=== PATIENT | female | born 1940 | race Caucasian/White ===

== ENCOUNTER → 2016-10-18 | Outpatient (CLI) | payer MEDICARE | END | disposition home or self-care (01) | LOC: GMAL 09:41 | PROVIDERS: ATTEND Family Medicine | DX: R30.0 Dysuria (principal) ==

== ENCOUNTER → 2016-11-01 | Outpatient (CLI) | payer MEDICARE ==
--- NOTE | 2016-11-01 09:41 | CT ---
EXAM DESCRIPTION: Abdoment/Pelvis w/o Contrast CLINICAL HISTORY: UNSPECIFIED ABD PAIN COMPARISON: February 10, 2015 TECHNIQUE: Noncontrast transaxial CT images of the abdomen and pelvis are obtained. Oral contrast is utilized. CT scan done according to ALARA (As Low As Reasonably Achievable). FINDINGS: The visualized lung bases show no acute findings. Small retrocardiac hiatal hernia is again seen slightly more prominent than previous. Given the limitations of a noncontrast exam the liver, spleen, pancreas, adrenal glands, and gallbladder are unremarkable. Calcifications of the spleen is seen suggesting old granulomatous disease. Kidneys show no abnormal calcifications. No ureteral obstruction. Urinary bladder is contracted and not well evaluated. The uterus is not well seen. No abnormal adnexal mass is appreciated. There is beam hardening artifact from a right hip arthroplasty securing visualization of the lower pelvis. The appendix is not definitely seen. No small bowel obstruction is seen. Stomach is relatively contracted. There are moderate scattered diverticuli throughout the entire colon without associated inflammatory changes or fluid collections. Small fat-containing umbilical and periumbilical hernias are seen. Osseous structures show no aggressive bony lesions. Degenerative changes of the spine are seen. No pathologically enlarged abdominal or retroperitoneal lymphadenopathy. Moderate atherosclerotic disease is seen. There is a small infrarenal abdominal aortic aneurysm measuring 2.6 cm greatest diameter ovary length of 3.1 cm. Is stable compared to previous. IMPRESSION: No acute findings on noncontrast CT of the abdomen and pelvis. Extensive colon diverticulosis without CT evidence of diverticulitis. Small retrocardiac hiatal hernia is stable. There is a 2.6 cm infrarenal abdominal aortic aneurysm stable from previous exam. Recommend follow-up imaging in 3 5 years. AAA Size: Follow-up Recommendation : 2.6-2.9 cm Every 5 years 3.0-3.4 cm Every 3 years 3.5-3.9 cm Every 1 year 4.0-4.4 cm Every 1 year, vascular consultation recommended 4.5-5.4 cm Every 6 months, vascular consultation recommended >5.5 cm Vascular surgery consultation recommended 1. J Vasc Surg. 2008;50(4 Suppl):S2-49 2. For aortas with maximum diameter of 2.6-2.9 cm meeting the criteria for AAA (>50% of proximal normal segment) Electronically signed by: Berny Roberts MD 11/01/2016 9:39 AM CDT
== END | disposition home or self-care (01) ==
LOC: CT 06:41
PROVIDERS: ATTEND Family Medicine
DX: R10.9 Unspecified abdominal pain (principal)

== ENCOUNTER → 2017-01-22 | Outpatient (CLI) | payer MEDICARE ==
--- NOTE | 2017-01-24 08:18 | RAD ---
EXAM DESCRIPTION: Wrist,Right 3 Views CLINICAL HISTORY: 76 years, Female, PAIN COMPARISON: None TECHNIQUE: AP/ lateral/ oblique views of the right wrist. FINDINGS: Right wrist is mildly demineralized with advanced degenerative changes particularly at the base of the thumb at the carpal metacarpal junction and at the articulation between the navicular and trapezium. No fracture or dislocation is seen in aggressive destructive changes of an inflammatory arthropathy are not apparent. Rather marked hypertrophic bone formation projects between the base of the thumb and the index finger at the proximal metacarpal level. A large bone spur osteophyte or joint mouse is suspected. Modest narrowing of the radiocarpal joint is evident. IMPRESSION: 1. Modest degenerative changes of the wrist with advanced degenerative disease at the base of the thumb and index finger with large accessory ossicle or spur projecting between the base of the first and second metacarpals Electronically signed by: Andrew Conti MD 01/24/2017 8:17 AM CDT
== END ==
LOC: RAD 11:30
PROVIDERS: ATTEND Orthopaedic Surgery
DX: M25.531 Pain in right wrist (principal); M12.831 Other specific arthropathies, not elsewhere classified, right wrist

== ENCOUNTER → 2017-02-19 | Outpatient (CLI) | payer MEDICARE | END | disposition home or self-care (01) | LOC: GMAL 11:34 | PROVIDERS: ATTEND Family Medicine | DX: D51.3 Other dietary vitamin B12 deficiency anemia (principal); E55.9 Vitamin D deficiency, unspecified ==

== ENCOUNTER 2017-06-04 05:47 | Day surgery (SDC) | payer MEDICARE ==
[2017-06-04] MEDS ORDERED: LACTATED RINGERS 1,000 ML ONE (06:04)
--- NOTE | 2017-06-04 09:56 | OP ---
DATE OF PROCEDURE: 06/04/17 PREOPERATIVE DIAGNOSIS: 1. Change in bowel habits. POSTOPERATIVE DIAGNOSIS: 1. Colonic polyp. 2. Diverticulosis. PROCEDURE: 1. Colonoscopy plus polypectomy. SURGEON: Leodan Witt MD. COMPLICATIONS: None apparent. BLOOD LOSS: None. MEDICATIONS: Monitored anesthesia care. DESCRIPTION OF PROCEDURE: Informed consent was obtained prior to sedation. The preprocedure cardiopulmonary assessment was satisfactory. The patient was placed in the left lateral decubitus position and was sedated. A digital rectal exam was unremarkable. The tip of the Olympus colonoscope was inserted in the rectum and guided over to the cecum. The colon was long and tortuous and there was loop formation. We had to apply abdominal pressure and also had to reduce loops in order to reach the cecum. The cecum was identified by locating the ileocecal valve and appendiceal orifice. Prep was good. The mucosa of the cecum, ascending colon, hepatic flexure, transverse colon, splenic flexure, descending colon and sigmoid colon was closely examined. Direct and retroflexed views of the rectum were obtained. In the distal ascending colon, there was a 1 cm sessile polyp that had the appearance of a serrated adenoma. This was removed with a hot snare in two pieces. There were no other polyps found. The patient has pretty much bonilla diverticulosis with some diverticula being seen in the ascending colon, transverse colon, descending colon, and certainly in the sigmoid colon. Otherwise, her scope was unremarkable without any stricturing or other significant pathology to account for her worsened constipation. RECOMMENDATIONS: 1. Followup polyp pathology. 2. Followup with me in [place] in one to two months and we will try to help with her altered bowel habits if she continues to have issues. #[id number] cc: Lucien Dougherty MD [facility]
[2017-06-04] MEDS ORDERED: PROPOFOL 200 MG/20 ML VIAL IV ONE (10:00)
[2017-06-04 14:21] VITALS: BP 120/74; TEMP 98.2; O2SAT 95
== END 2017-06-04 10:35 | disposition home or self-care (01) ==
LOC: AMB 05:47
PROVIDERS: ATTEND Internal Medicine Gastroenterology
DX: R19.4 Change in bowel habit (principal); D12.2 Benign neoplasm of ascending colon; K57.30 Diverticulosis of large intestine without perforation or abscess without bleeding; K59.09 Other constipation; Z87.891 Personal history of nicotine dependence; Z96.653 Presence of artificial knee joint, bilateral; Z96.641 Presence of right artificial hip joint; Z79.899 Other long term (current) drug therapy
CPT/HCPCS: 00810; 45385; 88305; J3490; J7120

== ENCOUNTER 2017-06-27 14:04 | Emergency (ER) | payer MEDICARE ==
[2017-06-27 14:28] VITALS: BP 128/91; TEMP 97.6; O2SAT 95
--- NOTE | 2017-06-27 14:40 | ED.PDOC ---
History of Present Illness - General Chief Complaint: Lower Extremity Injury Stated Complaint: Right knee discomfort Time Seen by Provider: 06/27/17 14:08 Source: patient, RN notes reviewed, Vital Signs reviewed Exam Limitations: no limitations - History of Present Illness Initial Comments: Patient comes in with c/o R knee pain after a fall. She had a mis-step on some wooden stairs landing on her R knee. She has hand a knee replacement in the past and wants to be sure nothing got damaged. Occurred: just prior to arrival Pain - Lower Extremity: moderate: Right Knee Method of Injury: fell Improving Factors: rest Worsening Factors: movement Allergies/Adverse Reactions: Allergies Codeine Allergy (Mild, Verified 06/27/17 14:28) Other itching Iodine Allergy (Mild, Verified 06/27/17 14:28) Rash Colesevelam [From Welchol] Adverse Reaction (Mild, Verified 06/27/17 14:28) Other cramping Ezetimibe [From Vytorin] Adverse Reaction (Mild, Verified 06/27/17 14:28) Other cramping Pravastatin Adverse Reaction (Mild, Verified 06/27/17 14:28) Other myalgia Rosuvastatin [From Crestor] Adverse Reaction (Mild, Verified 06/27/17 14:28) Other myalgia Sertraline [From Zoloft] Adverse Reaction (Mild, Verified 06/27/17 14:28) Other sweating Simvastatin [From Vytorin] Adverse Reaction (Mild, Verified 06/27/17 14:28) Other cramping Home Medications: Ambulatory Orders ALPRAZolam [Xanax] 0.5 mg PO BID PRN 02/07/14 Celecoxib [Celebrex] 200 mg PO DAILY 02/07/14 Donepezil Hydrochloride [Aricept] 10 mg PO DAILY 02/07/14 Gemfibrozil 600 mg PO DAILY 02/07/14 Losartan Potassium 50 mg PO DAILY 02/07/14 Omeprazole 20 mg PO BID 02/07/14 Furosemide [Lasix] 20 mg PO DAILY 07/14/14 Albuterol Sulfate [Proair Hfa] 2 puff IN BID PRN 09/13/14 Multiple Vitamin [Multivitamins] 1 cap PO DAILY 09/13/14 Potassium 99 mg PO BEDTIME 09/13/14 B-Complex Vitamins [B Complex] 1 cap PO PRN 06/04/17 Docusate Sodium [Stool Softener] 100 mg PO BID 06/04/17 Fluticasone Propionate Hfa [Flovent Hfa] 44 mcg IN DAILY 06/04/17 Lactulose (Encephalopathy) [Lactulose] 60 gm PO DAILY 06/04/17 Memantine [Namenda] 10 mg PO BID 06/04/17 Multiple Minerals W/ Vitamins [Citracal Plus] 1 tab PO BID 06/04/17 Omeprazole [PriLOSEC Cap] 20 mg PO BID 06/04/17 Polyethylene Glycol 3350 [Miralax] 17 gm PO PRN PRN 06/04/17 Saccharomyces Boulardii [Probiotic] 250 mg PO DAILY 06/04/17 Review of Systems - Review of Systems Constitutional: States: no symptoms reported Respiratory: States: no symptoms reported Cardiology: States: no symptoms reported Musculoskeletal: States: see HPI, joint pain - R knee, joint swelling - R knee Skin: States: no symptoms reported Neurological: States: no symptoms reported. Denies: numbness, paresthesia, tingling, weakness All other Systems: No Change from Baseline Past Medical History (General) - Patient Medical History Hx Seizures: No Hx Stroke: No Hx Dementia: No Hx Asthma: No Hx of COPD: Yes Hx Cardiac Disorders: Yes Hx Congestive Heart Failure: No Hx Pacemaker: No Hx Hypertension: Yes Hx Thyroid Disease: No Hx Diabetes: No Hx Gastroesophageal Reflux: Yes Hx Renal Disease: No Hx Cancer: No Hx of HIV: No Hx Hepatitis C: No Hx MRSA: No - Vaccination History Hx Influenza Vaccination: Yes - 2016 Hx Pneumococcal Vaccination: Yes - 2016 - Social History Hx Tobacco Use: No - Quit 2004 Hx Chewing Tobacco Use: No Hx Alcohol Use: No Hx Substance Use: Yes - former smoker Hx Substance Use Treatment: No Hx Depression: Yes Hx Physical Abuse: No Hx Emotional Abuse: No Hx Suspected Abuse: No - Female History Patient : No Family Medical History - Family History Father Living Status: Hx Family Cancer: Yes - bladder CA Mother Living Status: Hx Cardiac Disease: Yes - pacemaker, bradycardia Hx Family Cancer: Yes - "liver CA" Hx Family;Other: Mother had CAD Brother Living Status: Hx Family Diabetes: Yes Hx Family Cancer: Yes - bladder CA Hx Family;Other: 3 brothers total - one with COPD and DM; one with DM; and one with bladder CA and CAD. Sister Living Status: Hx Family Diabetes: Yes Hx Family Cancer: Yes - breast Hx Family;Other: 2 sisters - both with breast CA; both Physical Exam - Physical Exam General Appearance: Alert, Comfortable, No apparent distress, Well Developed, Well Groomed, Well Hydrated, Well Nourished Cardiovascular/Respiratory: normal peripheral pulses Thigh/Hip: normal inspection, non-tender, no evidence of injury, normal ROM Leg: normal inspection, non-tender, no evidence of injury, normal ROM Knee: normal ROM, bone tenderness - medial, proximal R tibia, ecchymosis, pain, soft tissue tenderness, swelling Ankle: normal inspection, non-tender, no evidence of injury, normal ROM Foot: normal inspection, non-tender, no evidence of injury, normal ROM Neuro/Tendon: normal sensation, normal motor functions, normal tendon functions , no evidence tendon injury Mental Status: alert, oriented x 3 Skin: normal color, warm/dry Comments: Vital Signs 06/27/17 14:20 Temperature 97.6 F Pulse Rate [ 79 Left Radial] Respiratory 18 Rate Blood Pressure 128/91 [Left Arm] O2 Sat by Pulse 95 Oximetry Progress - EKG/XRAY/CT XRAY: knee - prosthesis in place, no fracturing per Radiologist Departure - Departure Clinical Impression: Contusion of right knee, initial encounter Time of Disposition: 15:24 Disposition: Discharge to Home or Self Care Condition: Good Departure Forms: ED Discharge - Pt. Copy, Patient Portal Self Enrollment Instructions: DI for Knee Pain Diet: resume usual diet Activity: increase activity as tolerated Referrals: Lucien Dougherty III, MD [Primary Care Provider] - 1-2 Weeks Home Medications: Ambulatory Orders ALPRAZolam [Xanax] 0.5 mg PO BID PRN 02/07/14 Celecoxib [Celebrex] 200 mg PO DAILY 02/07/14 Donepezil Hydrochloride [Aricept] 10 mg PO DAILY 02/07/14 Gemfibrozil 600 mg PO DAILY 02/07/14 Losartan Potassium 50 mg PO DAILY 02/07/14 Omeprazole 20 mg PO BID 02/07/14 Furosemide [Lasix] 20 mg PO DAILY 07/14/14 Albuterol Sulfate [Proair Hfa] 2 puff IN BID PRN 09/13/14 Multiple Vitamin [Multivitamins] 1 cap PO DAILY 09/13/14 Potassium 99 mg PO BEDTIME 09/13/14 B-Complex Vitamins [B Complex] 1 cap PO PRN 06/04/17 Docusate Sodium [Stool Softener] 100 mg PO BID 06/04/17 Fluticasone Propionate Hfa [Flovent Hfa] 44 mcg IN DAILY 06/04/17 Lactulose (Encephalopathy) [Lactulose] 60 gm PO DAILY 06/04/17 Memantine [Namenda] 10 mg PO BID 06/04/17 Multiple Minerals W/ Vitamins [Citracal Plus] 1 tab PO BID 06/04/17 Omeprazole [PriLOSEC Cap] 20 mg PO BID 06/04/17 Polyethylene Glycol 3350 [Miralax] 17 gm PO PRN PRN 06/04/17 Saccharomyces Boulardii [Probiotic] 250 mg PO DAILY 06/04/17 Additional Instructions: Tylenol &/or Ibuprofen for pain. Ice knee for 15 minutes 3-5X/day
--- NOTE | 2017-06-27 15:13 | RAD ---
EXAM DESCRIPTION: Knee,Right Complete CLINICAL HISTORY: pain s/p fall COMPARISON: None. TECHNIQUE: 3 views right FINDINGS: A right total knee arthroplasty is observed in place. Positioning is near-anatomic. No evidence of loosening or infection is detected. Mild diffuse osteopenia is observed. No fracturing is detected. IMPRESSION: A total knee arthroplasty is observed. No fracturing is detected. Electronically signed by: Lucien Squires MD 06/27/2017 3:11 PM [facility]
== END 2017-06-27 15:29 | disposition home or self-care (01) ==
LOC: ER 14:04
DX: S80.01XA Contusion of right knee, initial encounter (principal); J44.9 Chronic obstructive pulmonary disease, unspecified; I10 Essential (primary) hypertension; K21.9 Gastro-esophageal reflux disease without esophagitis; Z96.651 Presence of right artificial knee joint; Z88.6 Allergy status to analgesic agent; Z88.8 Allergy status to other drugs, medicaments and biological substances; Z79.899 Other long term (current) drug therapy; Z87.891 Personal history of nicotine dependence; W10.9XXA Fall (on) (from) unspecified stairs and steps, initial encounter; Y92.9 Unspecified place or not applicable

== ENCOUNTER → 2017-08-12 | Outpatient (CLI) | payer MEDICARE ==
--- NOTE | 2017-08-13 09:45 | RAD ---
EXAM DESCRIPTION: Femur,Right CLINICAL HISTORY: 77 years Female, RIGHT HIP PAIN COMPARISON: None. FINDINGS: Four views of the femur demonstrate a total right hip prosthesis and a total right knee prosthesis in place with the femoral trochanteric and femoral shaft intact on these four images. A large separate greater trochanteric fragment that is migrated proximally is evident and likely related to previous injury and hip replacement. No acute abnormality or evidence of loosening seen at the knee replacement level. At the tip of the femoral prosthesis a tiny amount of lucency is present as well as a very slight lucency at the proximal extent of the stem on the frog-leg view. Mild loosening of the femoral component of the prosthesis would be a consideration. No dislocation is seen. IMPRESSION: Prior right hip and right knee total joint replacement evident with fragmented large separate greater trochanteric fragment at the lateral aspect of the right hip. No acute injury or dislocation seen. Subtle mottled lucency at both the distal tip and proximal portion of the femoral neck stem suggesting the possibility of early changes of loosening of the prosthesis. Electronically signed by: Andrew Conti MD 08/13/2017 9:44 AM [facility]
--- NOTE | 2017-08-13 09:51 | RAD ---
EXAM DESCRIPTION: Hip,Right 2 Views CLINICAL HISTORY: HIP PAIN COMPARISON: August 10, 2015 TECHNIQUE: AP/frog leg lateral FINDINGS: Two views of the right hip show very subtle lucency around the tip of the femoral stem and very slight change in alignment at the proximal portion of the femoral stem suggesting an element of loosening. Separate greater trochanteric fragment is unchanged from prior study. No fracture or dislocation is noted. Subtle changes of loosening of the femoral component of the prosthesis are suspected. IMPRESSION: Abnormal examination with subtle changes suggesting loosening of the femoral stem. Electronically signed by: Andrew Conti MD 08/13/2017 9:50 AM [facility]
== END ==
LOC: RAD 12:06
PROVIDERS: ATTEND Orthopaedic Surgery
DX: M25.551 Pain in right hip (principal); Z96.641 Presence of right artificial hip joint; Z96.651 Presence of right artificial knee joint; Z98.890 Other specified postprocedural states

== ENCOUNTER 2017-09-25 17:07 | Emergency (ER) | payer MEDICARE ==
[2017-09-25] MEDS ORDERED: ALUM & MAG HYDROX-SIMETHICONE 30 ML, LIDOCAINE VISCOUS 2% 15 ML PO ONE ×2 (17:36)
[2017-09-25] MEDS ORDERED: LIDOCAINE HCL 2% (MOUTH-THROAT) 15 ML UD ONE (18:02)
[2017-09-25] MEDS ORDERED: ALUM & MAG HYDROX-SIMETHICONE 30 ML UD ONE (18:02)
--- NOTE | 2017-09-25 18:31 | RAD ---
PROCEDURE: Abdomen Series Clinical History: left upper quad pain and dizziness for 2 hours Indication: Same as above Comparison: None Technique: 2.0 views of the abdomen and pelvis and 1.0 view of the chest were done. Findings: There is no gross evidence of free air in the abdomen or the pelvis . The small and large bowel gas pattern does not show any evidence of obstruction, ileus or bowel wall thickening. There is no visualization of radiopaque calculi in the outline of the urinary tract. There is no significant constipation. There is a right hip arthroplasty and multilevel degenerative change in the lumbar spine There are no discrete airspace infiltrates and pneumothoraces or pleural effusions. The cardiac mediastinal silhouette is unremarkable. Impression: There are no acute or significant findings in the chest, abdomen and pelvis Electronically signed by: Denis Martinez MD 09/25/2017 6:30 PM [facility] Workstation: [id number]
[2017-09-25] MEDS ORDERED: SUCRALFATE 1 GM/10 ML 1 GM UD PO ONE (19:27)
[2017-09-25] MEDS ORDERED: PANTOPRAZOLE SODIUM TAB 40 MG PO ONE (19:27)
--- NOTE | 2017-09-25 20:00 | CT ---
PROCEDURE: Abdoment/Pelvis w/o Contrast HISTORY: luq pain, dizziness Indication: Same as above Comparison: None Technique: CT of the abdomen and pelvis was done without intravenous contrast. Images were obtained from the lung base to the level of the pubic symphysis in axial plane, followed by orthogonal sagittal and coronal reconstruction. Oral contrast was not given for the study. This exam was performed according to our departmental dose-optimization program, which includes automated exposure control, adjustment of the mA and/or KV according to the patient's size and/or use of iterative reconstruction technique. FINDINGS: Images through the lung bases do not show any focal infiltrates or pleural effusions. There is presence of tiny intraluminal gallstones The liver, pancreas, spleen and the bilateral adrenal glands appear unremarkable, given the limitation of lack of intravenous contrast. The bilateral kidneys do not show any evidence of hydronephrosis or nephrolithiasis. Mild parenchymal scarring is seen in the lower pole of the left kidney The bilateral ureters and the bilateral periureteral soft tissues and fat planes are unremarkable. The urinary bladder is unremarkable, without any evidence of wall thickening, calculi or filling defects. The small bowel appears unremarkable, without any evidence of small bowel obstruction or bowel wall thickening. There is no CT evidence of acute appendicitis, pericecal inflammatory change or ileocecal mesenteric adenitis. The ileocecal junction appears unremarkable. There is no CT evidence of acute colonic diverticulitis or colitis or large bowel obstruction. There is extensive large bowel diverticulosis There is no pathological lymphadenopathy in the retroperitoneum or in the pelvic region. There is no evidence of free fluid or free air in the abdomen or the pelvic region. There is no clinically significant abdominal aortic aneurysm. There is a 2.5 cm ectasia of the infrarenal abdominal aorta not requiring any imaging follow-up There is no clinically significant inguinal or ventral hernia. The visualized lumbar spine shows multilevel degenerative change. There is right hip arthroplasty The paravertebral soft tissues are unremarkable. The remainder of the pelvic structures are unremarkable. IMPRESSION: Probable cholelithiasis. Ultrasound confirmation suggested for this finding. There is large bowel diverticulosis without acute diverticulitis Electronically signed by: Denis Martinez MD 09/25/2017 7:59 PM [facility] Workstation: [id number]
[2017-09-25 20:03] VITALS: TEMP 97.4
--- NOTE | 2017-09-25 20:34 | ED.PDOC ---
History of Present Illness - General Chief Complaint: Cardiovascular Problem Stated Complaint: L chest wall/back discomfort, dizziness, sweating Time Seen by Provider: 09/25/17 17:29 Source: patient - History of Present Illness Initial Comments: The patient is a 77-year-old female presenting to the emergency room after approximately 1 hour symptoms of epigastric and left upper quadrant discomfort along with an episode of dizziness. Vital signs within normal. She was feeling fine before that. She had just eaten some double legs and ham. She did not throw up but did feel little bit nauseated. She has not had any diarrhea or significant constipation. No vision changes. No focal neurological changes. She does not have central abdominal pain. No bruising. No fall. No evidence of any trauma. No history of diverticulitis.symptoms have almost resolved by the time the patient arrived here. the patient did have a history of a GI bleed apparently a couple of years ago but they were unable to find the source. No significant bleeding since that time. No recent medication changes.no chest pain and no shortness of breath. No pain in her back. Timing/Duration: 1 hour Severity: moderate Improving Factors: nothing Worsening Factors: nothing Associated Symptoms: denies symptoms Allergies/Adverse Reactions: Allergies Codeine Allergy (Mild, Verified 09/25/17 17:24) Other itching Iodine Allergy (Mild, Verified 09/25/17 17:24) Rash Colesevelam [From Welchol] Adverse Reaction (Mild, Verified 09/25/17 17:24) Other cramping Ezetimibe [From Vytorin] Adverse Reaction (Mild, Verified 09/25/17 17:24) Other cramping Pravastatin Adverse Reaction (Mild, Verified 09/25/17 17:24) Other myalgia Rosuvastatin [From Crestor] Adverse Reaction (Mild, Verified 09/25/17 17:24) Other myalgia Sertraline [From Zoloft] Adverse Reaction (Mild, Verified 09/25/17 17:24) Other sweating Simvastatin [From Vytorin] Adverse Reaction (Mild, Verified 09/25/17 17:24) Other cramping Home Medications: Ambulatory Orders ALPRAZolam [Xanax] 0.5 mg PO BID PRN 02/07/14 Celecoxib [Celebrex] 200 mg PO DAILY 02/07/14 Donepezil Hydrochloride [Aricept] 10 mg PO DAILY 02/07/14 Gemfibrozil 600 mg PO BID 02/07/14 Losartan Potassium 50 mg PO DAILY 02/07/14 Omeprazole 20 mg PO BID 02/07/14 Furosemide [Lasix] 20 mg PO DAILY 07/14/14 Albuterol Sulfate [Proair Hfa] 2 puff IN BID PRN 09/13/14 Multiple Vitamin [Multivitamins] 1 cap PO DAILY 09/13/14 Potassium 99 mg PO BEDTIME 09/13/14 B-Complex Vitamins [B Complex] 1 cap PO BEDTIME 06/04/17 Docusate Sodium [Stool Softener] 100 mg PO BID 06/04/17 Fluticasone Propionate Hfa [Flovent Hfa] 44 mcg IN DAILY 06/04/17 Lactulose (Encephalopathy) [Lactulose] 60 gm PO BEDTIME 06/04/17 Memantine [Namenda] 10 mg PO BID 06/04/17 Multiple Minerals W/ Vitamins [Citracal Plus] 1 tab PO BID 06/04/17 Polyethylene Glycol 3350 [Miralax] 17 gm PO BEDTIME 06/04/17 Saccharomyces Boulardii [Probiotic] 250 mg PO BEDTIME 06/04/17 Famotidine 20 mg PO BID #30 tab 09/25/17 Sucralfate Tab [Carafate Tab] 1 gm PO QID #120 tab 09/25/17 Review of Systems - Review of Systems Constitutional: States: no symptoms reported EENTM: States: no symptoms reported Respiratory: States: no symptoms reported Cardiology: States: no symptoms reported Gastrointestinal/Abdominal: States: see HPI Genitourinary: States: no symptoms reported Musculoskeletal: States: no symptoms reported Skin: States: no symptoms reported Neurological: States: other - dizziness Endocrine: States: no symptoms reported Hematologic/Lymphatic: States: no symptoms reported All other Systems: No Change from Baseline Past Medical History (General) - Patient Medical History Hx Seizures: No Hx Stroke: No Hx Dementia: No Hx Asthma: No Hx of COPD: Yes Hx Cardiac Disorders: Yes Hx Congestive Heart Failure: No Hx Pacemaker: No Hx Hypertension: Yes Hx Thyroid Disease: No Hx Diabetes: No Hx Gastroesophageal Reflux: Yes Hx Renal Disease: No Hx Cancer: No Hx of HIV: No Hx Hepatitis C: No Hx MRSA: No Surgical History: other - Vaccination History Hx Influenza Vaccination: Yes - 2017 Hx Pneumococcal Vaccination: Yes - 2017 - Social History Hx Tobacco Use: No - Quit 2004 Hx Chewing Tobacco Use: No Hx Alcohol Use: No Hx Substance Use: Yes - former smoker Hx Substance Use Treatment: No Hx Depression: Yes Hx Physical Abuse: No Hx Emotional Abuse: No Hx Suspected Abuse: No - Female History Patient : No Family Medical History - Family History Father Living Status: Hx Family Cancer: Yes - bladder CA Mother Living Status: Hx Cardiac Disease: Yes - pacemaker, bradycardia Hx Family Cancer: Yes - "liver CA" Hx Family;Other: Mother had CAD Brother Living Status: Hx Family Diabetes: Yes Hx Family Cancer: Yes - bladder CA Hx Family;Other: 3 brothers total - one with COPD and DM; one with DM; and one with bladder CA and CAD. Sister Living Status: Hx Family Diabetes: Yes Hx Family Cancer: Yes - breast Hx Family;Other: 2 sisters - both with breast CA; both Physical Exam - Physical Exam General Appearance: Alert, Anxious, No apparent distress Eye Exam: bilateral normal Ears, Nose, Throat: hearing grossly normal, normal ENT inspection, normal pharynx Neck: non-tender, full range of motion, supple, normal inspection Respiratory: chest non-tender, lungs clear, normal breath sounds, no respiratory distress Cardiovascular/Chest: normal peripheral pulses, regular rate, rhythm, no edema Peripheral Pulses: radial,right: 2+, radial,left: 2+, dorsalis pedis,right: 2+, dorsalis pedis,left: 2+ Gastrointestinal/Abdominal: soft, other - the patient has mild epigastric to left upper quadrant discomfort palpation. No true rebound or peritoneal signs. Rectal Exam: deferred Back Exam: normal inspection, no CVA tenderness, no vertebral tenderness Extremity: normal range of motion, non-tender, normal inspection, no pedal edema , normal capillary refill Neurologic: rn provider relations II-XII nml as tested, alert, normal mood/affect, oriented x 3 Skin Exam: normal color Comments: Vital Signs - 24 hr 09/25/17 09/25/17 09/25/17 17:17 17:40 17:42 Temperature 98.7 F Pulse Rate Pulse Rate [ 71 74 85 Left Radial] Respiratory 18 Rate Blood Pressure 134/59 114/58 138/61 [Right Arm] O2 Sat by Pulse 96 Oximetry 09/25/17 09/25/17 19:42 20:00 Temperature 97.4 F L Pulse Rate 75 Pulse Rate [ 71 75 Left Radial] Respiratory 18 20 Rate Blood Pressure 130/74 148/68 [Right Arm] O2 Sat by Pulse 98 97 Oximetry Progress - Progress Progress: 09/25/17 20:36 the patient is a 77-year-old female presenting to the emergency room secondary to left upper quadrant discomfort and mild dizziness associated with it. Workup has failed to yield any definitive pathology however the patient will be treated presumptively for significant gastritis given the clinical history. Hemoglobin and hematocrit have remained stable. Lab work is reassuring. CT scan is reassuring. The patient is going to be placed on Carafate and Pepcid for the next few weeks. ER warnings were given for any significant worsening. I want her to follow-up with her primary care doctor early next week. - Results/Orders Results/Orders: 09/25/17 17:35 Telemetry .CONTINUOUS Vital Signs-Tilt PRN 09/25/17 17:45 EKG STAT Laboratory Results - last 24 hr 09/25/17 09/25/17 09/25/17 17:45 17:45 17:45 WBC 6.5 RBC 3.97 L Hgb 12.5 Hct 36.2 MCV 91.2 MCH 31.4 H MCHC 34.6 RDW 12.5 Plt Count 293 MPV 7.5 Absolute Neuts (auto) 4.30 Absolute Lymphs (auto) 1.50 Absolute Monos (auto) 0.50 Absolute Eos (auto) 0.20 Absolute Basos (auto) 0.00 Neutrophils % 66.1 Lymphocytes % 23.1 Monocytes % 7.4 Eosinophils % 2.7 Basophils % 0.7 PT 11.9 INR 1.050 PTT (SP) 30.9 D-Dimer, Quantitative < 200 Sodium 135 Potassium 3.7 Chloride 102 Carbon Dioxide 22 Anion Gap 14.7 BUN 24 H Creatinine 0.98 BUN/Creatinine Ratio 24.5 H Random Glucose 115 H Serum Osmolality 275.1 Calcium 9.0 Magnesium 2.1 Total Bilirubin 0.3 AST 16 ALT 11 Alkaline Phosphatase 44 Creatine Kinase 43 CK-MB (CK-2) 1.4 CK-MB (CK-2) % Not Reportable Troponin I < 0.02 B-Natriuretic Peptide 12.8 Serum Total Protein 6.8 Albumin 4.0 Globulin 2.8 Albumin/Globulin Ratio 1.4 Amylase 45 Lipase 25 Urine Color Urine Appearance Urine pH Ur Specific [place] Urine Protein Urine Glucose (UA) Urine Ketones Urine Blood Urine Nitrite Urine Bilirubin Urine Urobilinogen Ur Leukocyte Esterase Urine RBC Urine WBC Ur Epithelial Cells Urine Bacteria 09/25/17 09/25/17 19:11 20:15 WBC 6.5 RBC 4.19 L Hgb 13.0 Hct 38.1 MCV 91.1 MCH 31.0 MCHC 34.2 RDW 12.6 Plt Count 303 MPV 7.6 Absolute Neuts (auto) 3.80 Absolute Lymphs (auto) 1.90 Absolute Monos (auto) 0.50 Absolute Eos (auto) 0.20 Absolute Basos (auto) 0.00 Neutrophils % 58.6 Lymphocytes % 29.5 Monocytes % 8.4 Eosinophils % 2.9 Basophils % 0.6 PT INR PTT (SP) D-Dimer, Quantitative Sodium Potassium Chloride Carbon Dioxide Anion Gap BUN Creatinine BUN/Creatinine Ratio Random Glucose Serum Osmolality Calcium Magnesium Total Bilirubin AST ALT Alkaline Phosphatase Creatine Kinase CK-MB (CK-2) CK-MB (CK-2) % Troponin I B-Natriuretic Peptide Serum Total Protein Albumin Globulin Albumin/Globulin Ratio Amylase Lipase Urine Color Yellow Urine Appearance Clear Urine pH 5.5 Ur Specific [place] 1.010 Urine Protein Negative Urine Glucose (UA) Negative Urine Ketones Negative Urine Blood Small H Urine Nitrite Negative Urine Bilirubin Negative Urine Urobilinogen 0.2 Ur Leukocyte Esterase Trace H Urine RBC 1-3 Urine WBC 3-5 H Ur Epithelial Cells 1-3 Urine Bacteria 0 acute abdominal series shows no acute pathology. EKG shows normal sinus rhythm at a rate of 76 bpm. Normal voltage. Borderline slow R-wave progression. No acute ST segment changes concerning for ischemia. Normal axis. CT scan of abdomen and pelvis shows no evidence of any hemorrhage. No aortic dissection or aneurysm. No acute pathology. She does have a few gallstones. Departure - Departure Clinical Impression: Dizziness Gastritis Qualifiers: Gastritis type: unspecified gastritis Chronicity: acute Gastritis bleeding: without bleeding Qualified Code(s): K29.00 - Acute gastritis without bleeding Disposition: Discharge to Home or Self Care Condition: Fair Departure Forms: ED Discharge - Pt. Copy, Patient Portal Self Enrollment Diet: bland diet Activity: increase activity as tolerated Referrals: Lucien Dougherty III, MD [Primary Care Provider] - 1-5 Days Prescriptions: Famotidine 20 mg PO BID #30 tab Sucralfate Tab [Carafate Tab] 1 gm PO QID #120 tab Home Medications: Ambulatory Orders ALPRAZolam [Xanax] 0.5 mg PO BID PRN 02/07/14 Celecoxib [Celebrex] 200 mg PO DAILY 02/07/14 Donepezil Hydrochloride [Aricept] 10 mg PO DAILY 02/07/14 Gemfibrozil 600 mg PO BID 02/07/14 Losartan Potassium 50 mg PO DAILY 02/07/14 Omeprazole 20 mg PO BID 02/07/14 Furosemide [Lasix] 20 mg PO DAILY 07/14/14 Albuterol Sulfate [Proair Hfa] 2 puff IN BID PRN 09/13/14 Multiple Vitamin [Multivitamins] 1 cap PO DAILY 09/13/14 Potassium 99 mg PO BEDTIME 09/13/14 B-Complex Vitamins [B Complex] 1 cap PO BEDTIME 06/04/17 Docusate Sodium [Stool Softener] 100 mg PO BID 06/04/17 Fluticasone Propionate Hfa [Flovent Hfa] 44 mcg IN DAILY 06/04/17 Lactulose (Encephalopathy) [Lactulose] 60 gm PO BEDTIME 06/04/17 Memantine [Namenda] 10 mg PO BID 06/04/17 Multiple Minerals W/ Vitamins [Citracal Plus] 1 tab PO BID 06/04/17 Polyethylene Glycol 3350 [Miralax] 17 gm PO BEDTIME 06/04/17 Saccharomyces Boulardii [Probiotic] 250 mg PO BEDTIME 06/04/17 Famotidine 20 mg PO BID #30 tab 09/25/17 Sucralfate Tab [Carafate Tab] 1 gm PO QID #120 tab 09/25/17 Additional Instructions: the patient is a 77-year-old female presenting to the emergency room secondary to left upper quadrant discomfort and mild dizziness associated with it. Workup has failed to yield any definitive pathology however the patient will be treated presumptively for significant gastritis given the clinical history. Hemoglobin and hematocrit have remained stable. Lab work is reassuring. CT scan is reassuring. The patient is going to be placed on Carafate and Pepcid for the next few weeks. ER warnings were given for any significant worsening. I want her to follow-up with her primary care doctor early next week. additionally the patient should hold her gemfibrozil, Celebrex and multivitamin for the next week.
[2017-09-25 20:56] VITALS: BP 130/70; O2SAT 96
== END 2017-09-25 20:58 | disposition home or self-care (01) ==
LOC: ER 17:07
DX: K29.00 Acute gastritis without bleeding (principal); R42 Dizziness and giddiness; J44.9 Chronic obstructive pulmonary disease, unspecified; I10 Essential (primary) hypertension; K21.9 Gastro-esophageal reflux disease without esophagitis; Z87.891 Personal history of nicotine dependence; Z80.52 Family history of malignant neoplasm of bladder

== ENCOUNTER → 2017-10-09 | Outpatient (CLI) | payer MEDICARE ==
--- NOTE | 2017-10-09 15:44 | NM ---
EXAM DESCRIPTION: Nuclear medicine hepatobiliary scan CLINICAL HISTORY: Abdominal pain COMPARISON: CT abdomen and pelvis dated September 25, 2017 TECHNIQUE: Routine hepatobiliary scan was performed following intravenous administration of 7.6 mCi technetium 99m mebrofenin. Approximately 8 ounces of fatty meal was used to stimulate gallbladder contraction. FINDINGS: Hepatobiliary scan shows prompt accumulation of the radiopharmaceutical within the liver and excretion into the biliary ductal system, gallbladder, and small bowel. Gallbladder ejection fraction is assessed over 30 min following intravenous administration of sincalide. Patient reports mid abdominal pain, fullness and gas . Gallbladder ejection fraction measured up to 54% (normal range is greater than 35%). IMPRESSION: 1. Visualization of the gallbladder essentially excludes acute cholecystitis. 2. Normal gallbladder ejection fraction at 54% (normal range is greater than 35%). 3. Patient reports mid abdominal pain, fullness and gas. Electronically signed by: Lucien Gonsalves MD 10/09/2017 3:43 PM [facility]
== END ==
LOC: US 08:00
PROVIDERS: ATTEND Family Medicine
DX: R10.84 Generalized abdominal pain (principal)
CPT/HCPCS: 78226; A9537

== ENCOUNTER → 2017-10-10 | Outpatient (CLI) | payer MEDICARE ==
--- NOTE | 2017-10-10 10:48 | US ---
EXAM DESCRIPTION: Gall Bladder sonogram right upper quadrant CLINICAL HISTORY: ABDOMINAL PN COMPARISON: CT abdomen September 25, 2017 and nuclear medicine hepatobiliary scan October 09, 2017 TECHNIQUE: Right upper quadrant ultrasound FINDINGS: Pancreas: Visualized portions of the pancreas are unremarkable. Bowel gas obscures some areas. Aorta/inferior vena cava: No aortic aneurysm. Normal inferior vena cava. Liver: The liver is homogeneous in texture with normal echogenicity of the hepatic parenchyma. No focal liver lesion or intrahepatic bile duct dilatation. No liver surface irregularity. Normal appearance of the portal vein and hepatic veins. Gallbladder: Shadowing stones in the gallbladder are seen which measure 5 mm and 7 mm. Low level echoes around the stones are seen which could be additional smaller calculi or minimal sludge. Gallbladder wall thickness of 2.5 mm is within normal limits. Common bile duct: Normal caliber measuring 4.7 mm. Right kidney: Renal length is 10.7 cm. Mildly increased cortical echogenicity may be senescent changes. Correlate with renal function studies. Cortical thickness is normal. No hydronephrosis is seen. No renal mass or shadowing calculus. IMPRESSION: Gallstones without other changes to suggest acute cholecystitis. Electronically signed by: Russel Drew MD 10/10/2017 10:47 AM CONSULTING TECHNICAL MANAGER
== END ==
LOC: US 08:02
PROVIDERS: ATTEND Family Medicine
DX: K80.80 Other cholelithiasis without obstruction (principal); R10.84 Generalized abdominal pain

== ENCOUNTER → 2018-02-05 | Outpatient (CLI) | payer MEDICARE | LOC: GMAL 11:28 | PROVIDERS: ATTEND Family Medicine | DX: I50.9 Heart failure, unspecified (principal); I10 Essential (primary) hypertension; E78.5 Hyperlipidemia, unspecified ==

== ENCOUNTER → 2018-03-02 | Outpatient (CLI) | payer MEDICARE ==
--- NOTE | 2018-03-02 16:49 | CT ---
EXAM DESCRIPTION: Head CLINICAL HISTORY: blurred vision, unspecified visual disturbance COMPARISON: None Available. TECHNIQUE: Contiguous axial images of the brain were obtained without the administration of intravenous contrast.This exam was performed according to our departmental dose-optimization program, which includes automated exposure control, adjustment of the mA and/or kV according to patient size and/or use of iterative reconstruction technique. FINDINGS: There is no acute intracranial hemorrhage or mass effect. Areas of low attenuation in the periventricular and subcortical white matter are nonspecific but suggestive of small vessel disease. There is generalized atrophy. Ventricular system is within normal limits. There is adequate rhoades-white matter differentiation. There is no skull fracture. There is atherosclerosis. The visualized paranasal sinuses and mastoid air cells are within normal limits. IMPRESSION: No acute intracranial abnormalities. Electronically signed by: José Manuel Ladd MD 03/02/2018 4:47 PM CDT
== END ==
LOC: CT 16:17
PROVIDERS: ATTEND Nurse Practitioner Family
DX: H53.9 Unspecified visual disturbance (principal)

== ENCOUNTER 2018-04-26 20:35 | Emergency (ER) | payer MEDICARE ==
--- NOTE | 2018-04-26 21:12 | ED.PDOC ---
History of Present Illness - General Chief Complaint: Neuro Symptoms/Deficits Stated Complaint: patient having hallucinations,poss dementia/Alzhei Time Seen by Provider: 04/26/18 21:10 Source: family - Exam Limitations: no limitations - History of Present Illness Initial Comments: Edna Ashton 78 y/o female brought by to ER stating she had been hallucinating- stated that she was seeing blonde girl in his husbands car also stated saw ladies wallet and told he was seeing another woman then saw son smoking and tried to pick cigarette on the floor.She was at her daughters house this weekend at [place] and woke up daughter at 3 am told her to bring her home.According to getting more violent trying to hit with her fist and getting more belligerent.Has been diagnosed with possible Alzheimers and was given donezepil and memantine but some of it was stopped since she became more dizzy w/it. stated has another appointment with neurologist Dr. Hero de leon coming Friday2017 Timing/Duration: changing over time Severity: moderate Improving Factors: nothing Worsening Factors: nothing Associated Symptoms: denies symptoms Allergies/Adverse Reactions: Allergies Codeine Allergy (Mild, Verified 09/25/17 17:24) Other itching Iodine Allergy (Mild, Verified 09/25/17 17:24) Rash Colesevelam [From Welchol] Adverse Reaction (Mild, Verified 09/25/17 17:24) Other cramping Ezetimibe [From Vytorin] Adverse Reaction (Mild, Verified 09/25/17 17:24) Other cramping Pravastatin Adverse Reaction (Mild, Verified 09/25/17 17:24) Other myalgia Rosuvastatin [From Crestor] Adverse Reaction (Mild, Verified 09/25/17 17:24) Other myalgia Sertraline [From Zoloft] Adverse Reaction (Mild, Verified 09/25/17 17:24) Other sweating Simvastatin [From Vytorin] Adverse Reaction (Mild, Verified 09/25/17 17:24) Other cramping Home Medications: Ambulatory Orders ALPRAZolam [Xanax] 0.5 mg PO BID PRN 02/07/14 Celecoxib [Celebrex] 200 mg PO DAILY 02/07/14 Donepezil Hydrochloride [Aricept] 10 mg PO DAILY 02/07/14 Gemfibrozil 600 mg PO BID 02/07/14 Losartan Potassium 50 mg PO DAILY 02/07/14 Omeprazole 20 mg PO BID 02/07/14 Furosemide [Lasix] 20 mg PO DAILY 07/14/14 Albuterol Sulfate [Proair Hfa] 2 puff IN BID PRN 09/13/14 Multiple Vitamin [Multivitamins] 1 cap PO DAILY 09/13/14 Potassium 99 mg PO BEDTIME 09/13/14 B-Complex Vitamins [B Complex] 1 cap PO BEDTIME 06/04/17 Docusate Sodium [Stool Softener] 100 mg PO BID 06/04/17 Fluticasone Propionate Hfa [Flovent Hfa] 44 mcg IN DAILY 06/04/17 Lactulose (Encephalopathy) [Lactulose] 60 gm PO BEDTIME 06/04/17 Memantine [Namenda] 10 mg PO BID 06/04/17 Multiple Minerals W/ Vitamins [Citracal Plus] 1 tab PO BID 06/04/17 Polyethylene Glycol 3350 [Miralax] 17 gm PO BEDTIME 06/04/17 Saccharomyces Boulardii [Probiotic] 250 mg PO BEDTIME 06/04/17 Famotidine 20 mg PO BID #30 tab 09/25/17 Sucralfate Tab [Carafate Tab] 1 gm PO QID #120 tab 09/25/17 Review of Systems - Review of Systems Constitutional: States: no symptoms reported EENTM: States: no symptoms reported Respiratory: States: no symptoms reported Cardiology: States: no symptoms reported Gastrointestinal/Abdominal: States: no symptoms reported Genitourinary: States: no symptoms reported Musculoskeletal: States: no symptoms reported Skin: States: no symptoms reported Neurological: States: emotional problems Past Medical History (General) - Patient Medical History Hx Seizures: No Hx Stroke: No Hx Dementia: No Hx Asthma: No Hx of COPD: No Hx Cardiac Disorders: No Hx Congestive Heart Failure: No Hx Pacemaker: No Hx Hypertension: Yes Hx Thyroid Disease: No Hx Diabetes: No Hx Gastroesophageal Reflux: No Hx Renal Disease: No Hx Cancer: No Hx of HIV: No Hx Hepatitis C: No Hx MRSA: No Surgical History: other - ,knee,hip - Vaccination History Hx Influenza Vaccination: Yes - 2016 Hx Pneumococcal Vaccination: Yes - 2016 - Social History Hx Tobacco Use: No - Quit 2004 Hx Chewing Tobacco Use: No Hx Alcohol Use: No Hx Substance Use: Yes - former smoker Hx Substance Use Treatment: No Hx Depression: Yes Hx Physical Abuse: No Hx Emotional Abuse: No Hx Suspected Abuse: No - Female History Patient : No Family Medical History - Family History Father Living Status: Hx Family Cancer: Yes - bladder CA Mother Living Status: Hx Cardiac Disease: Yes - pacemaker, bradycardia Hx Family Cancer: Yes - "liver CA" Hx Family;Other: Mother had CAD Brother Living Status: Hx Family Diabetes: Yes Hx Family Cancer: Yes - bladder CA Hx Family;Other: 3 brothers total - one with COPD and DM; one with DM; and one with bladder CA and CAD. Sister Living Status: Hx Family Diabetes: Yes Hx Family Cancer: Yes - breast Hx Family;Other: 2 sisters - both with breast CA; both Physical Exam - Physical Exam General Appearance: Alert, Comfortable, No apparent distress Eye Exam: bilateral normal Ears, Nose, Throat: hearing grossly normal, normal ENT inspection Neck: full range of motion, supple, normal inspection Respiratory: lungs clear, normal breath sounds, no respiratory distress Cardiovascular/Chest: normal peripheral pulses, regular rate, rhythm, no murmur Peripheral Pulses: radial,right: 2+, radial,left: 2+ Gastrointestinal/Abdominal: normal bowel sounds, non tender, soft, no organomegaly Back Exam: no CVA tenderness, no vertebral tenderness Extremity: non-tender, no pedal edema, no calf tenderness Neurologic: no motor/sensory deficits, alert, oriented x 3, other - cooperative; appropriate affect;no hallucinations noted during exam Skin Exam: normal color, warm/dry Lymphatic: no adenopathy Progress - Progress Progress: 04/27/18 00:01 Vital Signs - 8 hr 04/26/18 20:42 Temperature 98.3 F Pulse Rate [ 82 monitor] Respiratory 16 Rate Blood Pressure 132/82 [Left Arm] O2 Sat by Pulse 95 Oximetry 04/27/18 00:04 Patient had been walking around very cooperative no episodes of hallucination; wants to bring her home and see Dr. Monahan Friday as per appointment and her primary Md - Results/Orders Results/Orders: 04/26/18 21:57 URINE CULTURE W/COLONY COUNT Stat 04/26/18 22:58 Referral:Mental Health ONCE Laboratory Results - last 24 hr 04/26/18 04/26/18 04/26/18 21:11 21:11 21:13 WBC 6.6 RBC 4.15 L Hgb 13.5 Hct 39.4 MCV 95.0 MCH 32.5 H MCHC 34.3 RDW 12.6 Plt Count 264 MPV 7.1 L Absolute Neuts (auto) 4.20 Absolute Lymphs (auto) 1.80 Absolute Monos (auto) 0.40 Absolute Eos (auto) 0.20 Absolute Basos (auto) 0.00 Neutrophils % 64.1 Lymphocytes % 26.8 Monocytes % 6.0 Eosinophils % 2.5 Basophils % 0.6 PT 9.9 INR 0.99 PTT (SP) 29.2 D-Dimer, Quantitative 0.44 Sodium 139 Potassium 3.8 Chloride 104 Carbon Dioxide 27 Anion Gap 11.8 L BUN 16 Creatinine 0.87 BUN/Creatinine Ratio 18.4 Random Glucose 109 H Serum Osmolality 279.3 Lactic Acid 0.8 Calcium 10.0 Magnesium 2.0 Total Bilirubin 0.8 Direct Bilirubin < 0.1 Indirect Bilirubin 0.7 AST 22 ALT 15 Alkaline Phosphatase 52 Creatine Kinase 99 CK-MB (CK-2) 2.4 CK-MB (CK-2) % Not Reportable Troponin I < 0.02 B-Natriuretic Peptide Serum Total Protein 7.5 Albumin 4.6 Urine Color Urine Appearance Urine pH Ur Specific [place] Urine Protein Urine Glucose (UA) Urine Ketones Urine Blood Urine Nitrite Urine Bilirubin Urine Urobilinogen Ur Leukocyte Esterase Urine RBC Urine WBC Ur Epithelial Cells Amorphous Sediment Urine Bacteria Urine Opiates Screen Urine Barbiturates Ur Phencyclidine Scrn U Amphetamin/Meth Scrn U Benzodiazepines Scrn U Cocaine Metab Screen U Cannabinoids Screen RPR 04/26/18 04/26/18 04/26/18 21:13 21:13 21:15 WBC RBC Hgb Hct MCV MCH MCHC RDW Plt Count MPV Absolute Neuts (auto) Absolute Lymphs (auto) Absolute Monos (auto) Absolute Eos (auto) Absolute Basos (auto) Neutrophils % Lymphocytes % Monocytes % Eosinophils % Basophils % PT INR PTT (SP) D-Dimer, Quantitative Sodium Potassium Chloride Carbon Dioxide Anion Gap BUN Creatinine BUN/Creatinine Ratio Random Glucose Serum Osmolality Lactic Acid Calcium Magnesium Total Bilirubin Direct Bilirubin Indirect Bilirubin AST ALT Alkaline Phosphatase Creatine Kinase CK-MB (CK-2) CK-MB (CK-2) % Troponin I B-Natriuretic Peptide 9.3 Serum Total Protein Albumin Urine Color Urine Appearance Urine pH Ur Specific [place] Urine Protein Urine Glucose (UA) Urine Ketones Urine Blood Urine Nitrite Urine Bilirubin Urine Urobilinogen Ur Leukocyte Esterase Urine RBC Urine WBC Ur Epithelial Cells Amorphous Sediment Urine Bacteria Urine Opiates Screen Negative Urine Barbiturates Negative Ur Phencyclidine Scrn Negative U Amphetamin/Meth Scrn Negative U Benzodiazepines Scrn Negative U Cocaine Metab Screen Negative U Cannabinoids Screen Negative RPR Nonreactive 04/26/18 21:57 WBC RBC Hgb Hct MCV MCH MCHC RDW Plt Count MPV Absolute Neuts (auto) Absolute Lymphs (auto) Absolute Monos (auto) Absolute Eos (auto) Absolute Basos (auto) Neutrophils % Lymphocytes % Monocytes % Eosinophils % Basophils % PT INR PTT (SP) D-Dimer, Quantitative Sodium Potassium Chloride Carbon Dioxide Anion Gap BUN Creatinine BUN/Creatinine Ratio Random Glucose Serum Osmolality Lactic Acid Calcium Magnesium Total Bilirubin Direct Bilirubin Indirect Bilirubin AST ALT Alkaline Phosphatase Creatine Kinase CK-MB (CK-2) CK-MB (CK-2) % Troponin I B-Natriuretic Peptide Serum Total Protein Albumin Urine Color Yellow Urine Appearance Sl cloudy Urine pH 7.0 Ur Specific [place] 1.015 Urine Protein Negative Urine Glucose (UA) Negative Urine Ketones Negative Urine Blood Negative Urine Nitrite Negative Urine Bilirubin Negative Urine Urobilinogen 0.2 Ur Leukocyte Esterase Small H Urine RBC 0-1 Urine WBC 3-5 H Ur Epithelial Cells 3-5 Amorphous Sediment 1+ Urine Bacteria Rare Urine Opiates Screen Urine Barbiturates Ur Phencyclidine Scrn U Amphetamin/Meth Scrn U Benzodiazepines Scrn U Cocaine Metab Screen U Cannabinoids Screen RPR - EKG/XRAY/CT CT Ordered: Yes - head- no acute abnormalities Departure - Departure Clinical Impression: Hallucinations, History of dementia Time of Disposition: 00:06 Disposition: Discharge to Home or Self Care Condition: Fair Departure Forms: ED Discharge - Pt. Copy, Patient Portal Self Enrollment Referrals: Lucien Dougherty III, MD [Primary Care Provider] - 1-2 Weeks Home Medications: Ambulatory Orders ALPRAZolam [Xanax] 0.5 mg PO BID PRN 02/07/14 Celecoxib [Celebrex] 200 mg PO DAILY 02/07/14 Donepezil Hydrochloride [Aricept] 10 mg PO DAILY 02/07/14 Gemfibrozil 600 mg PO BID 02/07/14 Losartan Potassium 50 mg PO DAILY 02/07/14 Omeprazole 20 mg PO BID 02/07/14 Furosemide [Lasix] 20 mg PO DAILY 07/14/14 Albuterol Sulfate [Proair Hfa] 2 puff IN BID PRN 09/13/14 Multiple Vitamin [Multivitamins] 1 cap PO DAILY 09/13/14 Potassium 99 mg PO BEDTIME 09/13/14 B-Complex Vitamins [B Complex] 1 cap PO BEDTIME 06/04/17 Docusate Sodium [Stool Softener] 100 mg PO BID 06/04/17 Fluticasone Propionate Hfa [Flovent Hfa] 44 mcg IN DAILY 06/04/17 Lactulose (Encephalopathy) [Lactulose] 60 gm PO BEDTIME 06/04/17 Memantine [Namenda] 10 mg PO BID 06/04/17 Multiple Minerals W/ Vitamins [Citracal Plus] 1 tab PO BID 06/04/17 Polyethylene Glycol 3350 [Miralax] 17 gm PO BEDTIME 06/04/17 Saccharomyces Boulardii [Probiotic] 250 mg PO BEDTIME 06/04/17 Famotidine 20 mg PO BID #30 tab 09/25/17 Sucralfate Tab [Carafate Tab] 1 gm PO QID #120 tab 09/25/17 Additional Instructions: continue with home medications;Keep appointment with Neurologist Dr. Monahan-28 Apr 2018;Return to ER as needed
--- NOTE | 2018-04-26 22:09 | RAD ---
EXAM: Chest,1 View CLINICAL INDICATION: 78-year-old female with altered mental status. TECHNIQUE: Single view, AP portable chest was obtained. COMPARISON: Single view chest 06/09/2015. FINDINGS: Unremarkable cardiac and mediastinal silhouette. Heart size is normal. Tortuous atherosclerotic thoracic aorta. Lungs are clear without focal opacity, pneumothorax or pleural effusions. The visualized bones are within normal limits. IMPRESSION: No acute cardiopulmonary abnormalities. Electronically signed by: Linda Badillo MD 04/26/2018 10:07 PM CDT
--- NOTE | 2018-04-26 22:14 | CT ---
EXAM: Head CLINICAL INDICATION: 78-year-old female with hallucinations. COMPARISON: Noncontrast CT brain 03/02/2018 TECHNIQUE: CT brain without contrast. This exam was performed according to our departmental dose optimization program which includes use of automated exposure control, adjustment of the mA and/or kV according to patient size and/or use of iterative reconstruction technique. FINDINGS: Minimal foci of patchy hypoattenuation are present in a subcortical and periventricular deep white matter distribution, nonspecific; however, most likely represent small vessel ischemic disease, age indeterminate. The ventricles, and sulci are mildly prominent suggesting underlying volume loss, stable in comparison to the previous examination, within normal limits for the patient's age. The rhoades-white matter differentiation is preserved. There is no mass effect, midline shift, intra- or extra-axial fluid collection/acute hemorrhage. The osseous structures are unremarkable. The paranasal sinuses and mastoid air cells are clear. IMPRESSION: 1. No acute intracranial abnormalities. Nonspecific, minimal white matter change most likely small vessel ischemic disease, age indeterminate. 2. CT is insensitive for early evaluation of acute stroke. If there is clinical concern for acute ischemia, an MRI may be considered. Electronically signed by: Linda Badillo MD 04/26/2018 10:12 PM CDT
[2018-04-27 00:43] VITALS: BP 127/79; TEMP 98; O2SAT 96
== END 2018-04-26 23:45 | disposition home or self-care (01) ==
LOC: ER 20:35
DX: R44.1 Visual hallucinations (principal); F03.90 Unspecified dementia, unspecified severity, without behavioral disturbance, psychotic disturbance, mood disturbance, and anxiety; I10 Essential (primary) hypertension; F32.9 Major depressive disorder, single episode, unspecified; Z87.891 Personal history of nicotine dependence; Z79.899 Other long term (current) drug therapy; Z88.5 Allergy status to narcotic agent; Z88.8 Allergy status to other drugs, medicaments and biological substances; Z91.041 Radiographic dye allergy status

== ENCOUNTER → 2018-06-02 | Outpatient (CLI) | payer MEDICARE | LOC: GMAL 13:45 | PROVIDERS: ATTEND Family Medicine | DX: D51.3 Other dietary vitamin B12 deficiency anemia (principal); R53.83 Other fatigue; E55.9 Vitamin D deficiency, unspecified ==

== ENCOUNTER 2018-06-14 15:37 | Emergency (ER) | payer MEDICARE ==
--- NOTE | 2018-06-14 16:03 | ED.PDOC ---
History of Present Illness - General Chief Complaint: Abdominal Pain Stated Complaint: chest and upper abdominal pain Time Seen by Provider: 06/14/18 15:46 Source: patient, family Exam Limitations: no limitations - History of Present Illness Initial Comments: Patient presents after the acute onset of bilateral upper abdominal pain one hour [employer]. She was sitting when it started. She says it went across her upper abdomen in a band-like pattern. She is unable to describe the quality. She says that it has much improved and now she only feels it on the left side at the LUQ. Denies other symptoms. No cardiac history. No tobacco use. No history of bipedal edema. Has hyperlipidemia. No history of DM. She does have a history of GERD and said that she had spaghetti earlier today. Timing/Duration: 1 hour Severity: mild Improving Factors: nothing Worsening Factors: nothing Associated Symptoms: denies symptoms Allergies/Adverse Reactions: Allergies Codeine Allergy (Mild, Verified 09/25/17 17:24) Other itching Iodine Allergy (Mild, Verified 09/25/17 17:24) Rash CI Pigment Blue 63 [From Dexilant] Allergy (Verified 06/14/18 15:59) Dexlansoprazole [From Dexilant] Allergy (Verified 06/14/18 15:59) Rivastigmine Allergy (Verified 06/14/18 15:59) Colesevelam [From Welchol] Adverse Reaction (Mild, Verified 09/25/17 17:24) Other cramping Ezetimibe [From Vytorin] Adverse Reaction (Mild, Verified 09/25/17 17:24) Other cramping Pravastatin Adverse Reaction (Mild, Verified 09/25/17 17:24) Other myalgia Rosuvastatin [From Crestor] Adverse Reaction (Mild, Verified 09/25/17 17:24) Other myalgia Sertraline [From Zoloft] Adverse Reaction (Mild, Verified 09/25/17 17:24) Other sweating Simvastatin [From Vytorin] Adverse Reaction (Mild, Verified 09/25/17 17:24) Other cramping Home Medications: Ambulatory Orders ALPRAZolam [Xanax] 0.5 mg PO BID PRN 02/07/14 Celecoxib [Celebrex] 200 mg PO DAILY 02/07/14 Donepezil Hydrochloride [Aricept] 10 mg PO DAILY 02/07/14 Gemfibrozil 600 mg PO BEDTIME 02/07/14 Losartan Potassium 50 mg PO DAILY 02/07/14 Omeprazole 40 mg PO DAILY 02/07/14 Furosemide [Lasix] 20 mg PO DAILY 07/14/14 Albuterol Sulfate [Proair Hfa] 2 puff IN BID PRN 09/13/14 Multiple Vitamin [Multivitamins] 1 cap PO DAILY 09/13/14 Potassium 99 mg PO BEDTIME 09/13/14 B-Complex Vitamins [B Complex] 1 cap PO BEDTIME 06/04/17 Docusate Sodium [Stool Softener] 100 mg PO BID 06/04/17 Fluticasone Propionate Hfa [Flovent Hfa] 44 mcg IN DAILY PRN 06/04/17 Lactulose (Encephalopathy) [Lactulose] 6 tsp PO BEDTIME 06/04/17 Memantine [Namenda] 10 mg PO BID 06/04/17 Polyethylene Glycol 3350 [Miralax] 17 gm PO BEDTIME 06/04/17 Saccharomyces Boulardii [Probiotic] 250 mg PO BEDTIME 06/04/17 Calcium-Magnesium W/ Vitamin D [Citracal Calcium+D Slow R] 1 tab PO BID Citalopram Hydrobromide [Citalopram] 10 mg PO DAILY 06/14/18 Lubiprostone [Amitiza] 8 mcg PO BID 06/14/18 Rosuvastatin Calcium 10 mg PO BEDTIME 06/14/18 Review of Systems - Review of Systems Constitutional: States: no symptoms reported EENTM: States: no symptoms reported Respiratory: States: no symptoms reported Cardiology: States: no symptoms reported Gastrointestinal/Abdominal: States: see HPI Genitourinary: States: no symptoms reported Musculoskeletal: States: no symptoms reported Skin: States: no symptoms reported Neurological: States: no symptoms reported Endocrine: States: no symptoms reported Hematologic/Lymphatic: States: no symptoms reported Past Medical History (General) - Patient Medical History Hx Seizures: No Hx Stroke: No Hx Dementia: Yes Hx Asthma: No Hx of COPD: Yes Hx Cardiac Disorders: No Hx Congestive Heart Failure: No Hx Pacemaker: No Hx Hypertension: Yes Hx Thyroid Disease: No Hx Diabetes: No Hx Gastroesophageal Reflux: No Hx Renal Disease: No Hx Cancer: No Hx of HIV: No Hx Hepatitis C: No Hx MRSA: No - Vaccination History Hx Influenza Vaccination: Yes Hx Pneumococcal Vaccination: Yes - Social History Hx Tobacco Use: Yes Hx Chewing Tobacco Use: No Hx Alcohol Use: No Hx Substance Use: Yes - former smoker Hx Substance Use Treatment: No Hx Depression: Yes Hx Physical Abuse: No Hx Emotional Abuse: No Hx Suspected Abuse: No - Female History Patient : No Family Medical History - Family History Father Living Status: Hx Family Cancer: Yes - bladder CA Mother Living Status: Hx Cardiac Disease: Yes - pacemaker, bradycardia Hx Family Cancer: Yes - "liver CA" Hx Family;Other: Mother had CAD Brother Living Status: Hx Family Diabetes: Yes Hx Family Cancer: Yes - bladder CA Hx Family;Other: 3 brothers total - one with COPD and DM; one with DM; and one with bladder CA and CAD. Sister Living Status: Hx Family Diabetes: Yes Hx Family Cancer: Yes - breast Hx Family;Other: 2 sisters - both with breast CA; both Physical Exam - Physical Exam General Appearance: Alert Eye Exam: bilateral normal Ears, Nose, Throat: normal ENT inspection Neck: non-tender, full range of motion, supple Respiratory: chest non-tender, lungs clear, normal breath sounds Cardiovascular/Chest: normal peripheral pulses, regular rate, rhythm, no edema Gastrointestinal/Abdominal: normal bowel sounds, soft, tenderness - at LUQ with palpation Back Exam: normal inspection, no CVA tenderness Extremity: normal range of motion, non-tender, normal inspection Neurologic: no motor/sensory deficits, alert, normal mood/affect, oriented x 3 Skin Exam: normal color Lymphatic: no adenopathy Progress - Progress Progress: 06/14/18 16:05 Aspirin deferred initially due to the location of the pain and desire to rule out AAA first. 06/14/18 19:28 Laboratory Tests 06/14/18 06/14/18 06/14/18 16:05 16:05 16:05 WBC 6.7 RBC 3.90 L Hgb 12.7 Hct 37.1 MCV 95.2 MCH 32.5 H MCHC 34.3 RDW 12.2 Plt Count 313 MPV 7.4 Absolute Neuts (auto) 4.40 Absolute Lymphs (auto) 1.80 Absolute Monos (auto) 0.30 Absolute Eos (auto) 0.20 Absolute Basos (auto) 0.00 Neutrophils % 65.6 Lymphocytes % 26.3 Monocytes % 4.9 Eosinophils % 2.5 Basophils % 0.7 PT 10.2 INR 1.02 PTT (SP) 30.8 Sodium 134 L Potassium 3.7 Chloride 98 L Carbon Dioxide 27 Anion Gap 12.7 BUN 13 Creatinine 0.79 BUN/Creatinine Ratio 16.5 Random Glucose 100 Serum Osmolality 268.4 L Calcium 9.4 Total Bilirubin 0.4 AST 19 ALT 13 Alkaline Phosphatase 60 Creatine Kinase 40 CK-MB (CK-2) 1.0 CK-MB (CK-2) % Not Reportable Troponin I < 0.02 B-Natriuretic Peptide 10.5 Serum Total Protein 7.4 Albumin 4.2 Globulin 3.2 Albumin/Globulin Ratio 1.3 Lipase Urine Color Urine Appearance Urine pH Ur Specific [place] Urine Protein Urine Glucose (UA) Urine Ketones Urine Blood Urine Nitrite Urine Bilirubin Urine Urobilinogen Ur Leukocyte Esterase Urine RBC Urine WBC Ur Epithelial Cells Urine Bacteria 06/14/18 06/14/18 06/14/18 16:05 16:09 18:55 WBC RBC Hgb Hct MCV MCH MCHC RDW Plt Count MPV Absolute Neuts (auto) Absolute Lymphs (auto) Absolute Monos (auto) Absolute Eos (auto) Absolute Basos (auto) Neutrophils % Lymphocytes % Monocytes % Eosinophils % Basophils % PT INR PTT (SP) Sodium Potassium Chloride Carbon Dioxide Anion Gap BUN Creatinine BUN/Creatinine Ratio Random Glucose Serum Osmolality Calcium Total Bilirubin AST ALT Alkaline Phosphatase Creatine Kinase CK-MB (CK-2) CK-MB (CK-2) % Troponin I < 0.02 B-Natriuretic Peptide Serum Total Protein Albumin Globulin Albumin/Globulin Ratio Lipase 29 Urine Color Yellow Urine Appearance Clear Urine pH 6.0 Ur Specific [place] 1.010 Urine Protein Negative Urine Glucose (UA) Negative Urine Ketones Negative Urine Blood Small H Urine Nitrite Negative Urine Bilirubin Negative Urine Urobilinogen 0.2 Ur Leukocyte Esterase Small H Urine RBC 0-1 Urine WBC 3-5 H Ur Epithelial Cells 5-10 Urine Bacteria Rare CXR negative. Patient's EKG read by me showed NSR with no ST changes nor T wave inversions. No LBBB. Cardiac enzymes x two were negative. CT ab/pelvis showed a 2.9 cm AAA. This could not be causing her symptoms. Her pain resolved completely in the E.D. She was given a GI cocktail and she said she felt better. She was instructed to follow up with her doctor regarding future monitoring of the AAA. Care instructions given. E.R. warnings given. Questions were elicited and answered. Patient and her POA voiced understanding and agreement with the plan. Departure - Departure Clinical Impression: Abdominal pain Disposition: Discharge to Home or Self Care Condition: Good Departure Forms: ED Discharge - Pt. Copy, Patient Portal Self Enrollment Instructions: DI for Abdominal Pain-Adult Diet: other - as per your regular doctor Activity: increase activity as tolerated Referrals: Lucien Dougherty III, MD [Primary Care Provider] - 1-2 Weeks Home Medications: Ambulatory Orders ALPRAZolam [Xanax] 0.5 mg PO BID PRN 02/07/14 Celecoxib [Celebrex] 200 mg PO DAILY 02/07/14 Donepezil Hydrochloride [Aricept] 10 mg PO DAILY 02/07/14 Gemfibrozil 600 mg PO BEDTIME 02/07/14 Losartan Potassium 50 mg PO DAILY 02/07/14 Omeprazole 40 mg PO DAILY 02/07/14 Furosemide [Lasix] 20 mg PO DAILY 07/14/14 Albuterol Sulfate [Proair Hfa] 2 puff IN BID PRN 09/13/14 Multiple Vitamin [Multivitamins] 1 cap PO DAILY 09/13/14 Potassium 99 mg PO BEDTIME 09/13/14 B-Complex Vitamins [B Complex] 1 cap PO BEDTIME 06/04/17 Docusate Sodium [Stool Softener] 100 mg PO BID 06/04/17 Fluticasone Propionate Hfa [Flovent Hfa] 44 mcg IN DAILY PRN 06/04/17 Lactulose (Encephalopathy) [Lactulose] 6 tsp PO BEDTIME 06/04/17 Memantine [Namenda] 10 mg PO BID 06/04/17 Polyethylene Glycol 3350 [Miralax] 17 gm PO BEDTIME 06/04/17 Saccharomyces Boulardii [Probiotic] 250 mg PO BEDTIME 06/04/17 Calcium-Magnesium W/ Vitamin D [Citracal Calcium+D Slow R] 1 tab PO BID Citalopram Hydrobromide [Citalopram] 10 mg PO DAILY 06/14/18 Lubiprostone [Amitiza] 8 mcg PO BID 06/14/18 Rosuvastatin Calcium 10 mg PO BEDTIME 06/14/18 Additional Instructions: Return to the E.R. if pain happens again or for temperature above 100.4, shortness of breath. or vomiting. See your regular doctor about further monitoring of your abdominal aortic aneurysm.
--- NOTE | 2018-06-14 16:28 | RAD ---
EXAM DESCRIPTION: Chest,1 View CLINICAL HISTORY:78 years Female, upper abdominal pain Comparison: April 26, 2018 FINDINGS: No focal lung consolidation. No pleural effusion. No pneumothorax. Cardiac and mediastinal silhouette is unremarkable. No acute osseous abnormality. Soft tissues are unremarkable. IMPRESSION: No acute findings. No focal lung consolidation. Electronically signed by: Luisito Nice MD 06/14/2018 4:27 PM [facility]
--- NOTE | 2018-06-14 17:16 | CT ---
EXAM DESCRIPTION: Abdoment/Pelvis w/o Contrast CLINICAL HISTORY:78 years Female, abdominal pain Comparison: September 25, 2017 TECHNIQUE: Contiguous axial images of the abdomen and pelvis were obtained followed by reconstruction images. This exam was performed according to our departmental dose-optimization program, which includes automated exposure control, adjustment of the mA and/or kV according to patient size and/or use of iterative reconstruction technique. FINDINGS: Lung bases: Lung bases are clear. Heart: Visualized heart is within normal limits in size. Liver:Unremarkable. No focal liver lesion. Gallbladder: Small Gallstones. No CT evidence of cholecystitis. Spleen:Scattered calcifications suggestive of prior granulomatous exposure Pancreas: Pancreas is unremarkable. Adrenal glands:Within normal limits. Kidneys/ureters:Within normal limits Bladder:Unremarkable. Pelvic organs: No acute abnormality Vascular structures: Scattered atherosclerotic vascular calcifications. Inferior abdominal aorta measures 2.5 cm. Peritoneum: No free fluid. Lymph nodes: No abnormal lymph nodes. Stomach/small bowel/colon: Small hiatal hernia. Stomach is otherwise unremarkable. Small bowel is unremarkable. Colonic diverticulosis without evidence of diverticulitis. Appendix: No evidence of appendicitis. Bones: Mild to moderate spine degenerative changes. Right hip arthroplasty in place with no acute osseous abnormality. Soft tissues: Unremarkable.. IMPRESSION: No acute intra-abdominal abnormality. Colonic diverticulosis without evidence of diverticulitis. Minimal cholelithiasis. No CT evidence of cholecystitis. Inferior abdominal aorta measures up to 2.5 cm. See below for follow-up recommendations. AAA Size: Follow-up Recommendation : 2.6-2.9 cm Every 5 years 1. J Vasc Surg. 2009 May;50(4 Suppl):S2-49 2. For aortas with maximum diameter of 2.6-2.9 cm meeting the criteria for AAA (>50% of proximal normal segment) Electronically signed by: Luisito Nice MD 06/14/2018 5:14 PM [employer]
[2018-06-14] MEDS ORDERED: ALUM & MAG HYDROX-SIMETHICONE 30 ML UD ONE (17:26)
[2018-06-14] MEDS ORDERED: LIDOCAINE HCL 2% (MOUTH-THROAT) 15 ML UD ONE (17:26)
[2018-06-14] MEDS: ALUM & MAG HYDROX-SIMETHICONE 30 ML, LIDOCAINE VISCOUS 2% 15 ML PO ONE ×2 (17:27)
[2018-06-14 19:55] VITALS: BP 117/68; TEMP 98.1; O2SAT 97
== END 2018-06-14 19:55 | disposition home or self-care (01) ==
LOC: ER 15:37
DX: R10.12 Left upper quadrant pain (principal); F32.9 Major depressive disorder, single episode, unspecified; E78.5 Hyperlipidemia, unspecified; K21.9 Gastro-esophageal reflux disease without esophagitis; Z88.5 Allergy status to narcotic agent; Z91.041 Radiographic dye allergy status; Z88.8 Allergy status to other drugs, medicaments and biological substances; Z79.899 Other long term (current) drug therapy